=== PATIENT | female | born 1995 | race Caucasian/White ===

== ENCOUNTER 2020-10-22 08:38 | Emergency (ER) | payer OTHER ==
[2020-10-22] MEDS ORDERED: Sodium Chloride 0.9% 10 ML Syringe FLUSH PRN (08:57)
[2020-10-22] MEDS ORDERED: Lactated Ringers 1,000 ML IV ONE (09:01)
[2020-10-22] MEDS ORDERED: GI Cocktail Oral Solution 30 ML PO ONE (09:01)
--- NOTE | 2020-10-22 09:02 | EDM.PDOC ---
ED HPI GENERAL MEDICAL PROBLEM - General Stated Complaint: heart pounding Time Seen by Provider: 10/22/20 08:45 Source of Information: Reports: Patient History Limitations: Reports: No Limitations - History of Present Illness INITIAL COMMENTS - FREE TEXT/NARRATIVE: Patient comes emergency department today with complaints of midsternal chest pain and racing heart sensation. She received her initial Covid vaccine on Monday. Since that time she has had waxing and waning symptoms throughout her body. She has had a headache intermittently. She has a racing heart sensation. No weakness dizziness lightheadedness. No palpitations. Since last night she has had midsternal waxing and waning pressure. She is unable to reproduce this with deep breath cough movement. She has no other referred pain. No shortness of breath or difficulty breathing. No cough or congestion. No fever no chills. No abdominal pain nausea or vomiting but she has not had much of an appetite and has not drank or ate much and she got her vaccine. No hematuria dysuria or urinary frequency. No black or tarry stools. NO Covid exposure no COVID symptoms. Mid-Sternal Chest Pain Score (Numeric/FACES): 1 - Related Data Allergies Allergy/AdvReac Type Severity Reaction Status Date / Time No Known Allergies Allergy Verified 10/22/20 09:33 Home Meds: Home Meds . [Unable to Verify Home Med List] 10/22/20 [History] ED ROS GENERAL - Review of Systems Review Of Systems: Comprehensive ROS is negative, except as noted in HPI. ED EXAM, GENERAL - Physical Exam Exam: See Below Exam Limited By: No Limitations General Appearance: Alert, WD/WN, No Apparent Distress Eye Exam: Bilateral Eye: EOMI, PERRL Ears: Normal External Exam, Normal TMs Nose: Normal Inspection, Normal Mucosa Throat/Mouth: Normal Inspection, Normal Lips, Normal Teeth, Normal Oropharynx, Normal Voice, No Airway Compromise Head: Atraumatic, Normocephalic Neck: Normal Inspection, Supple, Non-Tender, Full Range of Motion Respiratory/Chest: No Respiratory Distress, Lungs Clear, Normal Breath Sounds, No Accessory Muscle Use, Chest Non-Tender Cardiovascular: Normal Peripheral Pulses, Regular Rate, Rhythm, No Murmur, Tachycardia (105) Peripheral Pulses: 2+: Radial (L), Radial (R), Posterior Tibial (L), Posterior Tibial (R), Dorsalis Pedis (L), Dorsalis Pedis (R) GI/Abdominal: Normal Bowel Sounds, Soft, Non-Tender, No Distention (Female) Exam: Deferred Rectal (Female) Exam: Deferred Back Exam: Normal Inspection, Full Range of Motion Extremities: Normal Inspection, Normal Range of Motion, Non-Tender, No Pedal Edema, Joint Swelling Neurological: Alert, Oriented, CN II-XII Intact, Normal Cognition, Normal Reflexes, No Motor/Sensory Deficits Psychiatric: Normal Affect, Normal Mood Skin Exam: Warm, Dry, Intact, Normal Color, No Rash #1 Interpretation EKG Date: 10/22/20 Time: 08:40 Rhythm: NSR Rate (Beats/Min): 105 [place]: Normal P-Wave: Present QRS: Normal ST-T: Normal QT: Normal Comparison: NA - No Prior EKG Course - Vital Signs Last Recorded V/S: Last Vital Signs Temp 99.1 F 10/22/20 08:43 Pulse 95 10/22/20 08:55 Resp 16 10/22/20 08:43 BP 146/88 H 10/22/20 08:55 Pulse Ox 97 10/22/20 08:43 - Orders/Labs/Meds Orders: Active Orders 24 hr Category Date Time Status Peripheral IV Insertion Adult [OM.PC] Stat Oth 10/22/20 08:57 Ordered Labs: Laboratory Tests 10/22/20 10/22/20 10/22/20 Range/Units 09:07 09:07 09:07 WBC 9.2 (4.0-10.0) x10^3/uL RBC 4.77 (4.00-5.50) x10^6/uL Hgb 14.1 (12.0-16.0) g/dL Hct 40.4 (33.0-47.0) % MCV 84.7 (78.0-93.0) fL MCH 29.6 (26.0-32.0) pg MCHC 34.9 (32.0-36.0) g/dL RDW Coeff of Angelina 12.1 (10.0-15.0) % Plt Count 316 (130-400) x10^3/uL Neut % (Auto) 77.8 (50.0-80.0) % Lymph % (Auto) 15.0 L (25.0-50.0) % [place] % (Auto) 5.8 (2.0-11.0) % Eos % (Auto) 1.2 (0.0-4.0) % Baso % (Auto) 0.2 (0.2-1.2) % Sodium 138 (136-145) mmol/L Potassium 3.9 (3.5-5.1) mmol/L Chloride 105 (98-107) mmol/L Carbon Dioxide 22 (21-32) mmol/L Anion Gap 14.9 (5-15) mmol/L BUN 12 (7-18) mg/dL Creatinine 0.8 (0.55-1.02) mg/dL Est Cr Clr Drug Dosing TNP Estimated GFR (MDRD) > 60 Glucose 92 (74-106) mg/dL Calcium 8.1 L (8.5-10.1) mg/dL Corrected Calcium 8.74 (8.5-10.1) mg/dL Magnesium 1.7 L (1.8-2.4) mg/dL Total Bilirubin 0.9 (0.2-1.0) mg/dL AST 13 L (15-37) U/L ALT 20 (14-59) U/L Alkaline Phosphatase 49 (46-116) U/L Troponin I High Sens 9 (<=51) ng/L Total Protein 6.5 (6.4-8.2) g/dL Albumin 3.2 L (3.4-5.0) g/dL Globulin 3.3 Albumin/Globulin Ratio 0.97 TSH, Ultra Sensitive 1.134 (0.358-3.74) uIU/mL Urine Color (YELLOW) Urine Appearance (CLEAR) Urine pH (5.0-8.0) Ur Specific [place] Urine Protein (NEGATIVE) mg/dL Urine Glucose (UA) (NEGATIVE) mg/dL Urine Ketones (NEGATIVE) mg/dL Urine Occult Blood (NEGATIVE) Urine Nitrite (NEGATIVE) Urine Bilirubin (NEGATIVE) Urine Urobilinogen (0.2) EU/dL Ur Leukocyte Esterase (NEGATIVE) Urine HCG, Qual (NEGATIVE) Urine Opiates Screen (NEGATIVE) Ur Buprenorphine Scrn (NEGATIVE) Ur Oxycodone Screen (NEGATIVE) Ur EDDP (Meth Metab) (NEGATIVE) Urine Methadone Screen (NEGATIVE) Ur Barbiturates Screen (NEGATIVE) Ur Tricyclics Screen (NEGATIVE) Ur Phencyclidine Scrn (NEGATIVE) Ur Amphetamine Screen (NEGATIVE) U Methamphetamines Scrn (NEGATIVE) Urine MDMA Screen (NEGATIVE) U Benzodiazepines Scrn (NEGATIVE) U Cocaine Metab Screen (NEGATIVE) U Marijuana (THC) Screen (NEGATIVE) 10/22/20 10/22/20 10/22/20 Range/Units 09:10 09:10 09:10 WBC (4.0-10.0) x10^3/uL RBC (4.00-5.50) x10^6/uL Hgb (12.0-16.0) g/dL Hct (33.0-47.0) % MCV (78.0-93.0) fL MCH (26.0-32.0) pg MCHC (32.0-36.0) g/dL RDW Coeff of Angelina (10.0-15.0) % Plt Count (130-400) x10^3/uL Neut % (Auto) (50.0-80.0) % Lymph % (Auto) (25.0-50.0) % [place] % (Auto) (2.0-11.0) % Eos % (Auto) (0.0-4.0) % Baso % (Auto) (0.2-1.2) % Sodium (136-145) mmol/L Potassium (3.5-5.1) mmol/L Chloride (98-107) mmol/L Carbon Dioxide (21-32) mmol/L Anion Gap (5-15) mmol/L BUN (7-18) mg/dL Creatinine (0.55-1.02) mg/dL Est Cr Clr Drug Dosing Estimated GFR (MDRD) Glucose (74-106) mg/dL Calcium (8.5-10.1) mg/dL Corrected Calcium (8.5-10.1) mg/dL Magnesium (1.8-2.4) mg/dL Total Bilirubin (0.2-1.0) mg/dL AST (15-37) U/L ALT (14-59) U/L Alkaline Phosphatase (46-116) U/L Troponin I High Sens (<=51) ng/L Total Protein (6.4-8.2) g/dL Albumin (3.4-5.0) g/dL Globulin Albumin/Globulin Ratio TSH, Ultra Sensitive (0.358-3.74) uIU/mL Urine Color Yellow (YELLOW) Urine Appearance Clear (CLEAR) Urine pH 6.0 (5.0-8.0) Ur Specific [place] >=1.030 Urine Protein Negative (NEGATIVE) mg/dL Urine Glucose (UA) Negative (NEGATIVE) mg/dL Urine Ketones Negative (NEGATIVE) mg/dL Urine Occult Blood Negative (NEGATIVE) Urine Nitrite Negative (NEGATIVE) Urine Bilirubin Negative (NEGATIVE) Urine Urobilinogen 0.2 (0.2) EU/dL Ur Leukocyte Esterase Negative (NEGATIVE) Urine HCG, Qual Negative (NEGATIVE) Urine Opiates Screen Negative (NEGATIVE) Ur Buprenorphine Scrn Negative (NEGATIVE) Ur Oxycodone Screen Negative (NEGATIVE) Ur EDDP (Meth Metab) Negative (NEGATIVE) Urine Methadone Screen Negative (NEGATIVE) Ur Barbiturates Screen Negative (NEGATIVE) Ur Tricyclics Screen Negative (NEGATIVE) Ur Phencyclidine Scrn Negative (NEGATIVE) Ur Amphetamine Screen Negative (NEGATIVE) U Methamphetamines Scrn Negative (NEGATIVE) Urine MDMA Screen Negative (NEGATIVE) U Benzodiazepines Scrn Negative (NEGATIVE) U Cocaine Metab Screen Negative (NEGATIVE) U Marijuana (THC) Screen Negative (NEGATIVE) Meds: Medications Discontinued Medications Generic Name Dose Route Start Last Admin Trade Name Freq PRN Reason Stop Dose Admin Al Hydroxide/Mg Hydroxide 30 ml 10/22/20 09:01 10/22/20 09:29 Gi Cocktail Oral Solution 30 Ml PO 10/22/20 09:02 30 ml ONETIME ONE Administration Lactated Ringer's 1,000 mls @ 999 mls/hr 10/22/20 09:01 10/22/20 09:10 Ringers, Lactated IV 10/22/20 10:01 999 mls/hr ONETIME ONE Administration Ketorolac Tromethamine 30 mg 10/22/20 10:06 10/22/20 10:12 Ketorolac 30 Mg/Ml Sdv IVPUSH 10/22/20 10:07 30 mg ONETIME ONE Administration Sodium Chloride 10 ml 10/22/20 08:57 Sodium Chloride 0.9% 10 Ml Syringe FLUSH ASDIRECTED PRN Keep Vein Open - Re-Assessments/Exams Free Text/Narrative Re-Assessment/Exam: 10/22/20 EKG is unremarkable with mild tachycardia at 1005 approximately. IV was established labs are drawn. 1 L LR wide open. GI Cocktail given. 10/22/20 13:35 Laboratory evaluation with a normal CBC. CMP with a slightly low calcium at 8.1, magnesium 1.7 AST 13 otherwise unremarkable. Troponin is negative at 9. TSH is 1.134. Urinalysis is negative. Urine drug screen is negative. Urine is negative. GI cocktail did not change her CP. Ketorolac 30mg IVP with resolution of the chest pain. I am really unsure of what is causing her kind of vague plethora symptoms that are waxing and waning. Nothing acute urgent intervention is identified. She may be having sequelae following her initial Covid vaccine. She has not been eating or drinking much. We will discharge her home at this time. Symptomatic management. Anything new or worse she is to recheck. She is comfortable with this plan and her questions were answered. Departure - Departure Time of Disposition: 10:21 Disposition: Home, Self-Care 01 Clinical Impression: Palpitations with regular cardiac rhythm, Non-cardiac chest pain Instructions: Nonspecific Chest Pain, Adult, [id number], Palpitations, [id number] Referrals: Lorraine Itneriano MD [Primary Care Provider] - Forms: ED Department Discharge Additional Instructions: Home rest. Increase fluids over the next week. Really try and push yourself to drink fluids and eat regular small meals. Tylenol and or Ibuprofen as needed for pain. Return to the ED if new or worsening symptoms. Follow up with PCP in the next 7 days if any concerns. Sepsis Event Note (ED) - Focused Exam Vital Signs: Vital Signs Temp Pulse Resp BP Pulse Ox 10/22/20 08:55 95 146/88 H 10/22/20 08:43 99.1 F 95 16 154/92 H 97 - My Orders Last 24 Hours: My Active Orders 10/22/20 08:57 Peripheral IV Insertion Adult [OM.PC] Stat - Assessment/Plan Last 24 Hours: My Active Orders 10/22/20 08:57 Peripheral IV Insertion Adult [OM.PC] Stat
[2020-10-22 09:51] LABS: BARBITURATE SCREEN,URINE NEGATIVE (NEGATIVE); BENZODIAZEPINES SCREEN,URINE NEGATIVE (NEGATIVE); EDDP,URINE SCREEN NEGATIVE (NEGATIVE); METHAMPHETAMINE SCREEN, URINE NEGATIVE (NEGATIVE); TCA SCREEN,URINE NEGATIVE (NEGATIVE); THC SCREEN,URINE 50 NG/ML NEGATIVE (NEGATIVE)
[2020-10-22 09:57] LABS: ANION GAP 14.9 mmol/L (5-15); CHLORIDE,CL 105 mmol/L (98-107); SODIUM,NA 138 mmol/L (136-145)
[2020-10-22] MEDS ORDERED: Ketorolac 30 MG/ML SDV IVPUSH ONE (10:06)
== END 2020-10-22 11:00 | disposition home or self-care (01) ==
LOC: VM.ED 08:38
DX: R07.89 Other chest pain (principal); R00.2 Palpitations
CPT/HCPCS: 80053; 80305-QW; 81003; 81025; 83735; 84443; 84484; 85025; 93005; 93010; 96374; 99284; 99285-25; A9270-GY; J1885; J7120

== ENCOUNTER 2022-02-13 19:44 | Emergency (ER) | payer OTHER ==
[2022-02-13] MEDS ORDERED: GI Cocktail Oral Solution 30 ML PO ONE (19:58)
[2022-02-13 20:24] LABS: CHLORIDE,CL 105 mmol/L (98-107); SODIUM,NA 140 mmol/L (136-145)
[2022-02-13 20:27] LABS: ANION GAP 15.8 mmol/L (5-15); ESTIMATED GFR 104 mL/min (>=60)
[2022-02-13 20:58] LABS: BUPRENORPHINE,URINE NEGATIVE (NEGATIVE); MARIJUANA,URINE NEGATIVE (NEGATIVE); METHYLENEDIOXYMETHAMP,UR NEGATIVE (NEGATIVE); PHENCYCLIDINE,URINE NEGATIVE (NEGATIVE)
[2022-02-13] MEDS ORDERED: Nitroglycerin 0.4 MG Tab.SL SL ONE (21:59)
== END 2022-02-13 23:33 | disposition home or self-care (01) ==
LOC: VM.ED 19:44
DX: I30.9 Acute pericarditis, unspecified (principal)
CPT/HCPCS: 36415; 80053; 80305; 84484; 85025; 85379; 86140; 93005; 99285; A9270

== ENCOUNTER 2024-05-23 07:59 | Day surgery (SDC) | payer OTHER ==
[2024-05-23] MEDS ORDERED: fentaNYL 100 MCG/2 ML SDV ONE (08:30)
[2024-05-23] MEDS ORDERED: Propofol 200 MG/20 ML SDV ONE ×2 (08:30→10:47)
[2024-05-23] MEDS: Lactated Ringers 1,000 ML IV SCH (08:46)
== END 2024-05-23 11:01 | disposition home or self-care (01) ==
LOC: VM.SDS 07:59
PROVIDERS: ATTEND Family Medicine
DX: K64.9 Unspecified hemorrhoids (principal)
CPT/HCPCS: J2704; J3010; J7120

== ENCOUNTER 2025-04-06 20:44 | Emergency (ER) | payer OTHER ==
[2025-04-06] MEDS: Take Home: Phenazopyridine 95 MG Tab, 4 Tab Pack PO ONE (21:53)
[2025-04-06] MEDS: Take Home: Nitrofurantoin Monohydrate/Macrocrystalline 100 MG, 6 Cap Pack PO ONE (21:53)
[2025-04-07 00:11] LABS: APPEARANCE,URINE CLOUDY (CLEAR); BILIRUBIN,URINE POC NEGATIVE (NEGATIVE); COLOR,URINE POC DARK YELLOW (YELLOW); GLUCOSE,URINE POC NEGATIVE (NEGATIVE); KETONES,URINE POC NEGATIVE (NEGATIVE); OCCULT BLOOD,URINE POC LARGE (NEGATIVE); PROTEIN,URINE POC 30 (NEGATIVE); UROBILINOGEN,URINE POC 0.2 (0.2)
[2025-04-07 00:12] LABS: LEUKOCYTE ESTERASE,URINE POC TRACE (NEGATIVE); NITRITE,URINE POC POSITIVE (NEGATIVE)
[2025-04-07 00:29] LABS: RBC,URINE POC 40-50 /HPF (NOT SEEN); SQUAMOUS EPITHELIAL CELLS,UR P FEW /HPF (NOT SEEN); WBC,URINE POC 0-5 /HPF (NOT SEEN)
[2025-04-07 00:30] LABS: BACTERIA,URINE POC MODERATE (NOT SEEN)
[2025-04-07 00:31] LABS: MUCUS,URINE POC NOT SEEN (NOT SEEN)
== END 2025-04-06 21:57 | disposition home or self-care (01) ==
LOC: VM.ED 20:44
DX: N30.01 Acute cystitis with hematuria (principal); Z79.899 Other long term (current) drug therapy; Z88.8 Allergy status to other drugs, medicaments and biological substances
CPT/HCPCS: 81000; 87086; 87186; 99283; 99284; A9270-GY